=== PATIENT | female | born 1980 | race Hispanic/Latino ===

== ENCOUNTER 2016-04-15 22:23 | Emergency (ER) | payer OTHER ==
[2016-04-15 23:32] LABS: Basophils % (Auto) 0.5 % (0.0-1.8); Eosinophils % (Auto) 1.7 % (0.0-4.3); Hematocrit 41.9 % (30.3-42.9); Hemoglobin 14.3 gm/dl (10.1-14.3); Mean Corpuscular HGB Conc 34 % (30-34); Mean Corpuscular Hemoglobin 32 pg (28-32); Mean Corpuscular Volume 95 fl (79-97); Platelet Count 217 K/mm3 (140-440); Red Blood Count 4.43 M/mm3 (3.65-5.03); Red Cell Distribution Width 12.8 % (13.2-15.2); White Blood Count 12.5 K/mm3 (4.5-11.0)
[2016-04-15 23:43] LABS: Anion Gap 21 mmol/L; BUN/Creatinine Ratio 18.33; Blood Urea Nitrogen 11 mg/dL (7-17); Calcium 9.3 mg/dL (8.4-10.2); Carbon Dioxide 21 mmol/L (22-30); Chloride 99.8 mmol/L (98-107); Glucose 90 mg/dL (65-100); Potassium 3.4 mmol/L (3.6-5.0); Sodium 138 mmol/L (137-145)
--- NOTE | 2016-04-16 10:12 | Emergency Department Report ---
HPI - General Chief Complaint: Dizziness Time Seen by Provider: 04/16/16 10:04 - HPI HPI: Chief complaint: Dizziness and nausea HPI: Nausea, right leg and foot pain, lightheadedness, headache, eyes and neck similar to previous migraines. Describes it as a throbbing headache. Patient denies fever or vomiting states she's had 3 episodes of diarrhea. Patient denies abdominal pain area and patient states she had some chest tightness for the first hour she was here in the emergency Department but has not had any since then. Patient states she has not had a CT scan in a long time. Patient states she normally takes ibuprofen for her headaches as well as propranolol on a daily basis to prevent headaches. Patient states that she does not like the way Imitrex makes her feel. When asked if she ever took narcotics for her headaches patient's asked what do you mean. Right leg pain radiates down the lateral aspect of her right leg and has some paresthesias. Negative urinary or fecal incontinence. Patient states she lives in [place] and comes here during the week to work. Mode of arrival: [private car] Source: [Patient] Began: Yesterday Duration: One day Context: Patient states she had a migraine all last week that was not relieved with [id number] medications. He finally went away and then she began having a headache again yesterday. Patient has a history of migraines, hypertension, elevated cholesterol, appendectomy, cholecystectomy and hysterectomy. Quality: Throbbing Severity: 7 out of 10 Improved with: See above Worsened with: Light makes the headache worse Associated signs and symptoms: See above ED Past Medical Hx - Past Medical History Hx Hypertension: Yes Hx Headaches / Migraines: Yes Additional medical history: hyperlipidemia - Surgical History Hx Cholecystectomy: Yes Hx Appendectomy: Yes Additional Surgical History: hysterectomy - Social History Smoking Status: Current Every Day Smoker Substance Use Type: None - Medications Home Medications: Home Medications Medication Instructions Recorded Confirmed Last Taken Type Ibuprofen [Motrin 600 MG tab] 600 mg PO Q8H PRN #14 tablet 04/16/16 Unknown Rx traMADol [Ultram 50 MG tab] 50 mg PO Q6HR PRN #14 tablet 04/16/16 Unknown Rx ED Review of Systems ROS: Stated complaint: DIZZINESS/BLURRED VISION Other details as noted in HPI ROS Constitutional: No fever ENT: No uri symptoms Cardiovascular: chest pain Respiratory: No sob or cough GI: No vomiting or diarrhea : No dysuria frequency or urgency, Skin: No rash Neuro: No focal weakness or numbness Psych: No depression Howard/lymph: No edema Physical Exam - Physical Exam Vital Signs: Vital Signs 04/15/16 04/16/16 22:57 05:35 Temperature 98.6 F 98.9 F Pulse Rate 74 66 Respiratory 18 16 Rate Blood Pressure 152/96 152/93 O2 Sat by Pulse 100 99 Oximetry Physical Exam: GENERAL: The patient is well-developed well-nourished . Somewhat flat affect. HEENT: Normocephalic. Atraumatic. Extraocular motions are intact. Patient has moist mucous membranes. NECK: Supple. No meningitic signs are noted. There is no adenopathy noted. CHEST/LUNGS: Clear to auscultation. There is no respiratory distress noted. HEART/CARDIOVASCULAR: Regular. There is no tachycardia. There is no gallop rub or murmur. ABDOMEN: Abdomen is soft, nontender. Patient has normal bowel sounds. There is no abdominal distention. SKIN: There is no rash. There is no edema. There is no diaphoresis. NEURO: The patient is awake, alert, and oriented. The patient is cooperative. The patient has no focal neurologic deficits. DTRs +2 bilaterally symmetrical. The patient has normal speech. MUSCULOSKELETAL: There is no tenderness or deformity. Straight leg raise is negative There is no limitation range of motion. There is no evidence of acute injury. ED Course Vital Signs 04/15/16 04/16/16 22:57 05:35 Temperature 98.6 F 98.9 F Pulse Rate 74 66 Respiratory 18 16 Rate Blood Pressure 152/96 152/93 O2 Sat by Pulse 100 99 Oximetry - Reevaluation(s) Reevaluation #1: 04/16/16 Patient given normal saline,reglan with slight improvement. After negative CT scan of head pt give toradol and state she is no better and may be worse. Patient then given 4 mg of Morphine. 04/16/16 14:00 Patient sleeping without problems and easily awakened. Patient states her headache is slightly better and is ready to go home. ED Medical Decision Making - Lab Data Result diagrams: 04/15/16 23:07 04/15/16 23:07 Laboratory Tests 04/15/16 04/16/16 04/16/16 23:07 02:00 05:48 Troponin T < 0.010 < 0.010 < 0.010 - EKG Data -: EKG Interpreted by Me EKG shows normal: sinus rhythm Rate: normal (64) - EKG Data When compared to previous EKG there are: previous EKG unavailable Interpretation: normal EKG (except for a rightward axis) - Radiology Data Radiology results: report reviewed (CT of the head within normal limits.) Critical care attestation.: If time is entered above; I have spent that time in minutes in the direct care of this critically ill patient, excluding procedure time. ED Disposition Clinical Impression: Migraine headache Qualifiers: Migraine type: unspecified Status migrainosus presence: without status migrainosus Intractability: not intractable Qualified Code(s): G43.909 - Migraine, unspecified, not intractable, without status migrainosus Sciatica Qualifiers: Laterality: right Qualified Code(s): M54.31 - Sciatica, right side Disposition: DISCHARGED TO HOME OR SELFCARE Is pt being admited?: No Does the pt Need Aspirin: No Condition: Stable Instructions: Migraine Headache (ED), Sciatica (ED) Prescriptions: Ibuprofen [Motrin 600 MG tab] 600 mg PO Q8H PRN #14 tablet PRN Reason: Pain traMADol [Ultram 50 MG tab] 50 mg PO Q6HR PRN #14 tablet PRN Reason: Pain Referrals: [facility] [Other] - 3-5 Days Time of Disposition: 14:00
[2016-04-16] MEDS ORDERED: REGLAN IV ONE (10:16)
[2016-04-16] MEDS ORDERED: NACL 0.9% 1000 ML IV ONE (10:16)
--- NOTE | 2016-04-16 10:38 | Cat Scan Report ---
CT HEAD WITHOUT CONTRAST: HISTORY: Headache. Serial contiguous axial images were obtained through the cranium. Intravenous contrast material was not administered. The ventricles are normal in size and appearance. There is no mass effect or midline shift. No areas of abnormally increased or decreased attenuation are seen. No mass lesion is seen. The mastoid air cells and visualized portions of the sinuses are normal. IMPRESSION: Cranial CT scan within normal limits.
[2016-04-16 10:53] LABS: Bacteria,Urine 4+ /HPF (Negative); Bilirubin,Urine NEG (Negative); Blood,Urine MOD (Negative); Ketones,Urine TR mg/dL (Negative); Leukocyte Esterase,Urine NEG (Negative); Mucus,Urine 3+ /HPF; Nitrite,Urine NEG (Negative); Urobilinogen,Urine < 2.0 mg/dL (<2.0)
[2016-04-16] MEDS ORDERED: TORADOL IV ONE (12:30)
[2016-04-16] MEDS ORDERED: TORADOL ONE (12:53)
[2016-04-16] MEDS ORDERED: MORPHINE IV ONE (13:15)
[2016-04-16] MEDS ORDERED: ZOFRAN IV ONE (13:15)
[2016-04-16] MEDS ORDERED: MORPHINE ONE (13:25)
[2016-04-16] MEDS ORDERED: ZOFRAN ONE (13:25)
[2016-04-16 14:25] VITALS: BP 142/85
== END 2016-04-16 14:15 | disposition home or self-care (01) ==
LOC: ED 22:23
DX: G43.909 Migraine, unspecified, not intractable, without status migrainosus (principal); M54.31 Sciatica, right side; I10 Essential (primary) hypertension; E78.5 Hyperlipidemia, unspecified; F17.200 Nicotine dependence, unspecified, uncomplicated; Z90.710 Acquired absence of both cervix and uterus; Z90.49 Acquired absence of other specified parts of digestive tract
CPT/HCPCS: 36415; 70450; 80048; 81001; 84484; 85025; 93005; 93010; 96361; 96374; 99285; J1885; J2270; J2405; J2765; J7030